=== PATIENT | male | born 1940 | race Two or more races ===

== ENCOUNTER 2022-03-26 09:29 | Day surgery (SDC) | payer OTHER ==
[~2022-03-26] VITALS: Ht 160 cm; Wt 58.1 kg
[~2022-03-26 09:29] MED LIST: ALEN70TA74 PO; ASPI1TAB19 PO; ATOR10TA52 PO; CHOL500024 PO; NITR0.4S29 SL; PANT40T PO; SILD50TA PO; TAMS0.4C36 PO
[2022-03-26] MEDS ORDERED: LIDOCAINE 2%HCL (LOCAL ANESTH.) INJ 20ML MDV ONE (10:52)
[2022-03-26] MEDS ORDERED: IODIXANOL 320MG/ML 100ML BTL IV ONE (10:52)
[2022-03-26] MEDS ORDERED: MIDAZOLAM HCL 2MG/2ML 2ml VIAL (1mg/ml) ONE (10:54)
[2022-03-26] MEDS ORDERED: ANGIOMAX 250 MG VIAL IV ONE (10:54)
[2022-03-26] MEDS ORDERED: fentaNYL CITRATE 100 MCG/2 ML VL ONE (10:54)
[2022-03-26] MEDS ORDERED: SODIUM CHL 0.9% 0 ML ONE (10:55)
[2022-03-26] MEDS ORDERED: VERAPAMIL 2.5MG/ML INJ 2ML VIAL IV ONE (10:56)
[2022-03-26] MEDS ORDERED: HEPARIN SODIUM (PORCINE) 5000 UNITS/ML 1ML VIAL ONE (10:57)
== END 2022-03-26 17:00 | disposition home or self-care (01) ==
LOC: CATH 09:29
PROVIDERS: ATTEND Internal Medicine
DX: R94.39 Abnormal result of other cardiovascular function study (principal); I25.118 Atherosclerotic heart disease of native coronary artery with other forms of angina pectoris; E78.5 Hyperlipidemia, unspecified; I35.1 Nonrheumatic aortic (valve) insufficiency; I51.7 Cardiomegaly; Z20.822 Contact with and (suspected) exposure to COVID-19
CPT/HCPCS: 93458; C1769; C1887; C1894; J1644; J2250; J3010; J7030; Q9967; U0003; 99152

== ENCOUNTER 2024-01-12 06:13 | Day surgery (SDC) | payer OTHER ==
[2024-01-12] VITALS (9 sets, daily range): BP systolic 120–147; BP diastolic 71–88; PULSE 48–57; RESP 12–17; TEMP 98.1; O2SAT 94–97
[~2024-01-12] VITALS: Ht 160 cm; Wt 58.5 kg
[~2024-01-12 06:13] MED LIST changes: +CLOP75TA70 PO; +OMEP20TA PO; -PANT40T PO; -SILD50TA PO
[2024-01-12] MEDS ORDERED: HEPARIN IN NS 1000Units/500mL 1,500 ML ONE ×2 (07:22→08:42)
[2024-01-12] MEDS ORDERED: GELATIN 1 SPONGE SIZE 50 TOP ONE (07:22)
[2024-01-12] MEDS ORDERED: IOHEXOL 350 MG/ML 100ML IJ ONE (07:22)
[2024-01-12] MEDS ORDERED: LIDOCAINE 2%HCL (LOCAL ANESTH.) INJ 20ML MDV ONE ×2 (07:22→08:42)
[2024-01-12] MEDS ORDERED: ANGIOMAX 250 MG VIAL IV ONE (08:13)
[2024-01-12] MEDS ORDERED: HEPARIN SODIUM (PORCINE) 5000 UNITS/ML 1ML VIAL ONE (08:13)
[2024-01-12] MEDS ORDERED: fentaNYL CITRATE 100 MCG/2 ML VL ONE (08:14)
[2024-01-12] MEDS ORDERED: MIDAZOLAM HCL 2MG/2ML 2ml VIAL (1mg/ml) ONE (08:14)
[2024-01-12] MEDS ORDERED: SODIUM CHL 0.9% 50 ML ONE (08:14)
[2024-01-12] MEDS ORDERED: VERAPAMIL 2.5MG/ML INJ 2ML VIAL IV ONE (08:14)
[2024-01-12] MEDS ORDERED: IODIXANOL 320MG/ML 100ML BTL IV ONE ×2 (08:33→08:42)
[2024-01-12] MEDS ORDERED: ASPirin 81 mg TAB ONE (08:53)
[2024-01-12] MEDS ORDERED: CLOPIDOGREL BISULFATE 75 MG TAB ONE (08:55)
== END 2024-01-12 11:41 | disposition home or self-care (01) ==
LOC: CATH 06:13
PROVIDERS: ATTEND Internal Medicine
DX: R94.39 Abnormal result of other cardiovascular function study (principal); I25.118 Atherosclerotic heart disease of native coronary artery with other forms of angina pectoris; I35.1 Nonrheumatic aortic (valve) insufficiency; I51.7 Cardiomegaly; E78.00 Pure hypercholesterolemia, unspecified; Z79.82 Long term (current) use of aspirin; Z79.899 Other long term (current) drug therapy; Z98.61 Coronary angioplasty status; Z98.890 Other specified postprocedural states; Z82.49 Family history of ischemic heart disease and other diseases of the circulatory system
CPT/HCPCS: 92920; 93454; C1725; C1769; C1887; C1894; J0583; J1644; J2250; J3010; Q9967; 99152